=== PATIENT | female | born 1930 | race Caucasian/White ===

== ENCOUNTER 2017-05-24 12:32 | Emergency (ER) | payer BC ==
[~2017-05-24] VITALS: Ht 162.6 cm; Wt 61.4 kg
[2017-05-24 12:41] VITALS: TEMP 36.3; Ht 162.6 cm; Wt 61.4 kg
[2017-05-24 13:04] VITALS: O2SAT 95
[2017-05-24 13:33] LABS: BASO % 0.3 %; BASO ABS # 0.02 K/uL (0-0.2); EOS % 1.2 %; EOS ABS # 0.08 K/uL (0-0.5); HEMOGLOBIN 14.6 g/dL (12.0-16.0); IG# 0.01 K/uL (0.00-0.02); LYMPH % 22.3 %; LYMPH ABS # 1.48 K/uL (1.2-3.4); MEAN CELL VOLUME 93.5 fL (80-100); MEAN CORPUSCULAR HEMOGLOBIN 32.5 pg (25-34); MEAN CORPUSCULAR HGB CONC 34.8 g/dl (32-36); MONO % 7.4 %; MONO ABS # 0.49 K/uL (0.11-0.59); NEUT % 68.6 %; NEUT ABS # 4.56 K/uL (1.4-6.5); PLATELET COUNT 179 K/uL (130-400); RED CELL DISTRIBUTION WIDTH CV 13.7 % (11.5-14.5); WHITE BLOOD COUNT 6.64 K/uL (4.8-10.8)
[2017-05-24 13:42] LABS: ALBUMIN 4.1 gm/dl (3.4-5.0); ALT/SGPT 23 U/L (12-78); BLOOD UREA NITROGEN 25 mg/dl (7-18); CARBON DIOXIDE 28 mmol/L (21-32); GLUCOSE 99 mg/dl (70-99); POTASSIUM 3.9 mmol/L (3.5-5.1); SODIUM 139 mmol/L (136-145)
--- NOTE | 2017-05-24 13:45 | DIAGNOSTIC IMAGING REPORT ---
CHEST ONE VIEW PORTABLE CLINICAL HISTORY: syncope COMPARISON STUDY: No previous studies for comparison. FINDINGS: The cardiac and mediastinal contours are normal. There is no evidence of focal pulmonary consolidation. There is no evidence of failure. No pleural effusions are visualized.[ IMPRESSION: No active disease in the chest. Electronically signed by: Thiago Couch M.D. 05/24/2017 1:44 PM Dictated Date/Time: 05/24/2017 1:44 PM
[2017-05-24 13:53] LABS: ALKALINE PHOSPHATASE 74 U/L (45-117); AST/SGOT 18 U/L (15-37); CKMB 1.1 ng/ml (0.5-3.6); TOTAL PROTEIN 7.4 gm/dl (6.4-8.2)
[2017-05-24] MEDS ORDERED: MULT-506 PO (14:26)
[2017-05-24] MEDS ORDERED: ALEN70TA2 PO (14:26)
[2017-05-24] MEDS ORDERED: CHOL100010 PO (14:26)
[2017-05-24] MEDS ORDERED: ATOR-22 PO (14:26)
[2017-05-24] MEDS ORDERED: ASPI81TA28 PO (14:26)
[2017-05-24] MEDS ORDERED: VTMB12100 PO (14:26)
[2017-05-24] MEDS ORDERED: CLB/200 PO (14:26)
[2017-05-24] MEDS ORDERED: HYDR25TA5 PO (14:26)
--- NOTE | 2017-05-24 15:03 | EMERGENCY ROOM VISIT NOTE ---
History Report prepared by Marc: Sanjay Luna Under the Supervision of: Dr. Syed Langston D.O. First contact with patient: 13:30 Chief Complaint: OTHER COMPLAINT Stated Complaint: FAINTED,UNCONSCIOUS FOR 1 MINIUTE History of Present Illness The patient is an 86 year old female who presents to the Emergency Room with complaints of a syncopal episode that occurred prior to arrival today. Per the patient's family, they were sitting in the stands of a track and field meet at the [facility], and the patient's eyes started to roll to the back of her head and she passed out for about 30 seconds. The patient took about a minute to gather her senses. The patient states that she last remembers feeling hot inside the arena, and per the patient's family, the patient did not want to go to the bathroom at the meet so she did not drink water before going. She was noted to have a damp sweater after the episode. The patient notes that she is doing well now, and was able to walk out of the stadium without assistance. The patient denies any fevers, chest pain, or headaches. She did have cold symptoms last week but no flu-like symptoms. Source of History: patient, family Onset: [employer] today Position: other (global) Symptom Intensity: out for about 30 seconds Quality: other (syncope) Timing: other (episode) Associated Symptoms: + LOC, + diaphoresis, No fevers, No headache, No chest pain Note: Associated symptoms: Does not remember episode. [place] hot before episode. Now feels normal. Review of Systems See HPI for pertinent positives & negatives. A total of 10 systems reviewed and were otherwise negative. Past Medical & Surgical Medical Problems: (1) No pertinent past medical history Family History Family history omitted secondary to patient's advanced age. Social History Smoking Status: Never Smoker Drug Use: none Housing Status: lives with family Occupation Status: retired Current/Historical Medications Scheduled Alendronate Sodium (Fosamax), 1 TAB PO WK Aspirin (Aspirin Ec), 81 MG PO DAILY Atorvastatin (Lipitor), 1 TAB PO DAILY Celecoxib (CeleBREX), 1 CAP PO DAILY Cholecalciferol (Vitamin D), 1 TAB PO DAILY Cyanocobalamin (Vitamin B-12), 1 TAB PO Q2D Hydrochlorothiazide (Hydrochlorothiazide), 1 TAB PO DAILY Multivitamin (Multivitamin), 1 TAB PO DAILY Allergies Coded Allergies: Acetaminophen (Unverified Allergy, Intermediate, RASH, DIZZY, 05/24/17) Oxycodone (Unverified Allergy, Intermediate, RASH, DIZZY, 05/24/17) Physical Exam Vital Signs Date Time Temp Pulse Resp B/P (MAP) Pulse Ox O2 Delivery O2 Flow Rate FiO2 05/24/17 14:09 86 18 129/75 95 Room Air 05/24/17 13:27 78 132/75 87 143/79 94 160/89 05/24/17 13:12 80 05/24/17 13:04 95 Room Air 05/24/17 12:41 36.3 84 18 151/84 98 Room Air Physical Exam VITAL SIGNS: were reviewed as above. GENERAL:Non-toxic in appearance. SKIN: Warm dry and pink. HEAD: Normocephalic and atraumatic. OROPHARYNX: Is clear and moist NECK: Supple without lymphadenopathy or meningismus. LUNGS: clear. HEART: Regular rate and rhythm. ABDOMEN: Soft and nontender. EXTREMITIES: Warm and well perfused. NEUROLOGICALLY: Awake alert and oriented without focal deficit. Cranial nerves 2 -12 are intact. There is no pronator drift. Cerebellar testing is within normal limits. There is no nystagmus. There is no facial droop. Speech is clear. Vision is grossly normal. MUSCULOSKELETAL: Good muscle tone. No evidence of trauma. Medical Decision & Procedures ER Provider Diagnostic Interpretation: X ray results and stated below per my interpretation and radiology interpretation. CHEST ONE VIEW PORTABLE CLINICAL HISTORY: syncope COMPARISON STUDY: No previous studies for comparison. FINDINGS: The cardiac and mediastinal contours are normal. There is no evidence of focal pulmonary consolidation. There is no evidence of failure. No pleural effusions are visualized.[ IMPRESSION: No active disease in the chest. Electronically signed by: Thiago Couch M.D. 05/24/2017 1:44 PM Dictated Date/Time: 05/24/2017 1:44 PM Laboratory Results 05/24/17 13:00 Red Blood Count 4.49, Mean Corpuscular Volume 93.5, Mean Corpuscular Hemoglobin 32.5, Mean Corpuscular Hemoglobin Concent 34.8, Mean Platelet Volume 10.0, Neutrophils (%) (Auto) 68.6, Lymphocytes (%) (Auto) 22.3, Monocytes (%) (Auto) 7.4, Eosinophils (%) (Auto) 1.2, Basophils (%) (Auto) 0.3, Neutrophils # (Auto) 4.56, Lymphocytes # (Auto) 1.48, Monocytes # (Auto) 0.49, Eosinophils # (Auto) 0.08, Basophils # (Auto) 0.02 05/24/17 13:00 Test 05/24/17 13:00 05/24/17 13:22 White Blood Count 6.64 K/uL (4.8-10.8) Red Blood Count 4.49 M/uL (4.2-5.4) Hemoglobin 14.6 g/dL (12.0-16.0) Hematocrit 42.0 % (37-47) Mean Corpuscular Volume 93.5 fL (80-100) Mean Corpuscular Hemoglobin 32.5 pg (25-34) Mean Corpuscular Hemoglobin Concent 34.8 g/dl (32-36) Platelet Count 179 K/uL (130-400) Mean Platelet Volume 10.0 fL (7.4-10.4) Neutrophils (%) (Auto) 68.6 % Lymphocytes (%) (Auto) 22.3 % Monocytes (%) (Auto) 7.4 % Eosinophils (%) (Auto) 1.2 % Basophils (%) (Auto) 0.3 % Neutrophils # (Auto) 4.56 K/uL (1.4-6.5) Lymphocytes # (Auto) 1.48 K/uL (1.2-3.4) Monocytes # (Auto) 0.49 K/uL (0.11-0.59) Eosinophils # (Auto) 0.08 K/uL (0-0.5) Basophils # (Auto) 0.02 K/uL (0-0.2) RDW Standard Deviation 47.0 fL (36.4-46.3) RDW Coefficient of Variation 13.7 % (11.5-14.5) Immature Granulocyte % (Auto) 0.2 % Immature Granulocyte # (Auto) 0.01 K/uL (0.00-0.02) Anion Gap 7.0 mmol/L (3-11) Est Creatinine Clear Calc Drug Dose 32.9 ml/min Estimated GFR () 53.4 Estimated GFR (Non- 46.1 BUN/Creatinine Ratio 22.5 (10-20) Calcium Level 9.0 mg/dl (8.5-10.1) Total Bilirubin 0.5 mg/dl (0.2-1) Aspartate Amino Transf (AST/SGOT) 18 U/L (15-37) Alanine Aminotransferase (ALT/SGPT) 23 U/L (12-78) Alkaline Phosphatase 74 U/L (45-117) Total Creatine Kinase 66 U/L (26-192) Creatine Kinase MB 1.1 ng/ml (0.5-3.6) Creatine Kinase MB Ratio 1.7 (0-3.0) Troponin I < 0.015 ng/ml (0-0.045) Total Protein 7.4 gm/dl (6.4-8.2) Albumin 4.1 gm/dl (3.4-5.0) Globulin 3.3 gm/dl (2.5-4.0) Albumin/Globulin Ratio 1.2 (0.9-2) Thyroid Stimulating Hormone (TSH) 2.400 uIu/ml (0.300-4.500) Urine Color YELLOW Urine Appearance CLEAR (CLEAR) Urine pH 6.5 (4.5-7.5) Urine Specific [place] 1.019 (1.000-1.030) Urine Protein NEG (NEG) Urine Glucose (UA) NEG (NEG) Urine Ketones NEG (NEG) Urine Occult Blood NEG (NEG) Urine Nitrite NEG (NEG) Urine Bilirubin NEG (NEG) Urine Urobilinogen NEG (NEG) Urine Leukocyte Esterase MODERATE (NEG) Urine WBC (Auto) 10-30 /hpf (0-5) Urine RBC (Auto) 0-4 /hpf (0-4) Urine Hyaline Casts (Auto) 10-30 /lpf (0-5) Urine Epithelial Cells (Auto) >30 /lpf (0-5) Urine Bacteria (Auto) NEG (NEG) Laboratory results as stated above per my review. ECG Per My Interpretation Indication: syncope Rate (beats per minute): 83 Rhythm: sinus rhythm Findings: PVC, other (no ST elevations) ED Course 1330: Previous medical records were reviewed. The patient was evaluated in room A11B. A complete history and physical examination was performed. 1454: On reevaluation, the patient is resting comfortably. I discussed the results and findings with the patient. She verbalized agreement of the treatment plan. She was discharged home. Medical Decision Differentials include: Acute cardiac dysrhythmia, microinfarction, CVA, TIA, dehydration, anemia, electrolyte disturbance, seizure, trauma, intracranial bleeding, acute vascular catastrophe, thoracic aortic dissection, PE, abdominal aortic aneurysm rupture, and ectopic rupture. This is an 86-year-old female who presents to the ED with a chief complaint of syncopal episode. The patient was at an indoor event watching her granddaughter doing a track meet. The patient was rather warm. She states that she briefly passed out for about 30 seconds. There is no seizure activity. This was witnessed by the family members. The patient has not had anything to drink all day. She states that she did not want to have to go to the bathroom during the sporting event. The patient was brought to the emergency department for evaluation by the family. The patient denies having any headaches. She denies any recent illness. She denies any focal neurologic deficits. Orthostatic vital signs were performed and were negative. The patient did drink some fluids here. An EKG shows sinus rhythm without acute injury. There was a PVC. CBC and complete metabolic panel was unremarkable. The BUN was noted to be 25. Troponin was negative. Complete metabolic panel was normal and the urine did not show obvious infection. Chest x-ray was negative for acute disease. The patient was told the results of the test. She was felt to be stable for discharge. She drank oral fluids while here. She was feeling fine and was discharged with her family. Medication Reconcilliation Current Medication List: was personally reviewed by me Blood Pressure Screening Patient's blood pressure: Elevated blood pressure Blood pressure disposition: Elevated BP felt to be situational Impression Primary Impression: Syncope Additional Impression: Dehydration Scribe Attestation The scribe's documentation has been prepared under my direction and personally reviewed by me in its entirety. I confirm that the note above accurately reflects all work, treatment, procedures, and medical decision making performed by me. Departure Information Dispostion Home / Self-Care Referrals No Doctor, Assigned (PCP) Patient Instructions My [email or web address] Additional Instructions Increase fluids. Follow-up with your doctor for further care and evaluation in 1-2 days. Return to the emergency department for worsening or new symptoms or any concerns. You have been examined and treated today on an emergency basis only. This is not a substitute for, or an effort to provide, complete comprehensive medical care. It is impossible to recognize and treat all injuries or illnesses in a single emergency department visit. It is therefore important that you follow up closely with your doctor. Call as soon as possible for an appointment. Problem Qualifiers
[2017-05-24 15:18] VITALS: BP 122/89; PULSE 77; O2SAT 96
== END 2017-05-24 15:19 | disposition home or self-care (01) ==
LOC: C.EDB 12:36 → C.EDA 15:19
DX: R55 Syncope and collapse (principal); E86.0 Dehydration; Z79.82 Long term (current) use of aspirin